=== PATIENT | male | born 1955 | race Caucasian/White ===

== ENCOUNTER 2021-11-29 15:05 | Inpatient (IN) ==
[2021-11-29] MEDS ORDERED: DILTIAZEM 50 MG/10 ML VIAL IV STA (20:06)
[2021-11-29] MEDS ORDERED: DILTIAZEM INJ 100 MG in SODIUM CHLORIDE 0.9% 100 ML IV SCH (20:30)
[2021-11-29 21:07] LABS: Basophils % 0.6 % (0.0-0.8); Eosinophils % 0.3 % (0.00-10.9); Hematocrit 45.6 VOL% (42.0-52.0); Hemoglobin 14.6 GM/DL (14.0-18.0); Immature Granulocytes % 0.6 %; Immature Granulocytes Absolute 0.04 #; Lymphocytes # 1.2 10*3/uL (1.4-4.0); Lymphocytes % 16.5 % (21.2-54.2); Mean Corpuscular Volume 92.5 FL (87-102); Mean Platelet Volume 11.8 FL (9.6-12.0); Monocytes % 10.8 % (1.7-12.7); Neutrophils % 71.2 % (38.7-73.9); Platelet Count 203 T/CUMM (130-400); Red Blood Count 4.93 MC/CUMM (3.8-5.5); Red Cell Distribution Width 14.2 % (9.3-17.3)
[2021-11-29 21:16] LABS: PT Patient Result 10.9 SECS (10.5-12.0)
[2021-11-29 21:28] LABS: Albumin 2.9 G/DL (3.4-5.0); Bilirubin,Total 0.8 MG/DL (0.20-1.00); Calcium 9.2 MG/DL (8.5-10.1); Osmolality,Calculated 304.4 MOS/KG (273-304); Potassium 3.9 MMOL/L (3.5-5.1); Total Protein 6.7 G/DL (6.4-8.2)
[2021-11-29] MEDS ORDERED: SODIUM CHLORIDE 0.9% 1,000 ML IV STA (21:32)
[2021-11-29] MEDS ORDERED: GLUCAGON 1 MG VIAL IM PRN (22:53)
[2021-11-29] MEDS ORDERED: DEXTROSE 50% 25 GM/50 ML SYRINGE IV PRN (22:57)
[2021-11-29] MEDS ORDERED: DEXTROSE 50% 25 GM/50 ML VIAL IV PRN (22:59)
[2021-11-29] MEDS ORDERED: METOPROLOL TARTRATE 25 MG TABLET PO SCH (23:00)
[2021-11-29] MEDS ORDERED: SODIUM CHLORIDE 0.9% 500 ML IV SCH (23:00)
[2021-11-29] MEDS ORDERED: INSULIN GLARGINE 100 UNIT/ML SUBCUT SCH (23:00)
[2021-11-30 06:22] LABS: Basophils % 0.4 % (0.0-0.8); Eosinophils # 0.1 10*3/uL (0.0-0.87); Hematocrit 39.3 VOL% (42.0-52.0); Hemoglobin 12.8 GM/DL (14.0-18.0); Lymphocytes # 1.4 10*3/uL (1.4-4.0); Lymphocytes % 18.9 % (21.2-54.2); Mean Corpuscular HGB Conc 32.6 GM/DL (32-36); Mean Corpuscular Volume 93.1 FL (87-102); Mean Platelet Volume 12.1 FL (9.6-12.0); Monocytes % 12.8 % (1.7-12.7); Neutrophils % 66.3 % (38.7-73.9); Platelet Count 174 T/CUMM (130-400); Red Blood Count 4.22 MC/CUMM (3.8-5.5); Red Cell Distribution Width 13.8 % (9.3-17.3); White Blood Count 7.2 T/CUMM (4-12)
[2021-11-30 06:53] LABS: Calcium 8.9 MG/DL (8.5-10.1); Osmolality,Calculated 300.1 MOS/KG (273-304); Potassium 3.3 MMOL/L (3.5-5.1)
[2021-11-30 08:19] LABS: Lymphocytes 8 % (20-55); Segmented Neutrophils 87 % (50-85)
[2021-11-30 08:20] LABS: Platelet Estimate Normal; Polychromasia Slight
[2021-11-30] MEDS ORDERED: DILTIAZEM CD 120 MG CAPSULE PO SCH (09:00)
[2021-11-30] MEDS ORDERED: FLUDROCORTISONE 0.1 MG TABLET PO SCH (09:00)
[2021-11-30] MEDS: DILTIAZEM CD 120 MG CAPSULE PO SCH (09:43)
[2021-11-30] MEDS: TAMSULOSIN 0.4 MG CAPSULE PO SCH (09:44)
[2021-11-30] MEDS: CYANOCOBALAMIN 500 MCG TABLET PO SCH (09:44)
[2021-11-30] MEDS: MAGNESIUM CHLORIDE 64 MG TABLET PO SCH (09:44)
[2021-11-30] MEDS: FERROUS SULFATE 325 MG TABLET PO SCH (09:44)
[2021-11-30] MEDS: APIXABAN 5 MG TABLET PO SCH ×2 (09:44→20:21)
[2021-11-30] MEDS: METOPROLOL TARTRATE 50 MG TABLET PO SCH ×3 (09:44→20:22)
[2021-11-30] MEDS: DULoxetine 30 MG CAPSULE PO SCH (09:44)
[2021-11-30] MEDS: ASPIRIN EC 81 MG TABLET PO SCH (09:45)
[2021-11-30] MEDS: PANTOPRAZOLE 40 MG TABLET PO SCH (09:51)
[2021-11-30] MEDS: INSULIN GLARGINE 100 UNIT/ML SUBCUT SCH ×2 (09:51→20:23)
[2021-11-30] MEDS: INSULIN LISPRO 100 UNIT/ML SUBCUT SCH ×6 (09:53→20:57)
[2021-11-30] MEDS: ALBUTEROL/IPRATROPIUM 3 ML NEB RESP TX PRN (11:30)
[2021-11-30] MEDS: oxyCODONE/ACETAMINOPHEN 5-325 MG TABLET PO PRN ×2 (11:53→17:56)
[2021-11-30] MEDS: CHOLECALCIFEROL 1,000 UNIT TABLET PO SCH (20:21)
[2021-11-30] MEDS: ATORVASTATIN 80 MG TABLET PO SCH (20:21)
[2021-11-30] MEDS: MONTELUKAST 10 MG TABLET PO SCH (20:22)
[2021-11-30] MEDS: POTASSIUM CHLORIDE 20 MEQ TABLET PO PRN (20:22)
[2021-12-01] MEDS: POTASSIUM CHLORIDE 20 MEQ TABLET PO PRN (01:54)
[2021-12-01] MEDS: oxyCODONE/ACETAMINOPHEN 5-325 MG TABLET PO PRN (01:54)
[2021-12-01 05:20] LABS: Basophils % 0.3 % (0.0-0.8); Eosinophils # 0.2 10*3/uL (0.0-0.87); Eosinophils % 2.2 % (0.00-10.9); Hematocrit 39.5 VOL% (42.0-52.0); Hemoglobin 12.6 GM/DL (14.0-18.0); Immature Granulocytes % 0.9 %; Immature Granulocytes Absolute 0.06 #; Lymphocytes # 1.5 10*3/uL (1.4-4.0); Lymphocytes % 22.9 % (21.2-54.2); Mean Corpuscular HGB Conc 31.9 GM/DL (32-36); Mean Corpuscular Volume 92.9 FL (87-102); Mean Platelet Volume 11.6 FL (9.6-12.0); Monocytes % 10.3 % (1.7-12.7); Neutrophils % 63.4 % (38.7-73.9); Platelet Count 159 T/CUMM (130-400); Red Blood Count 4.25 MC/CUMM (3.8-5.5); Red Cell Distribution Width 13.9 % (9.3-17.3); White Blood Count 6.7 T/CUMM (4-12)
[2021-12-01 05:40] LABS: Calcium 9.1 MG/DL (8.5-10.1); Osmolality,Calculated 292.7 MOS/KG (273-304); Potassium 3.1 MMOL/L (3.5-5.1)
[2021-12-01] MEDS: TAMSULOSIN 0.4 MG CAPSULE PO SCH (08:48)
[2021-12-01] MEDS: DULoxetine 30 MG CAPSULE PO SCH (08:48)
[2021-12-01] MEDS: ASPIRIN EC 81 MG TABLET PO SCH (08:49)
[2021-12-01] MEDS: FERROUS SULFATE 325 MG TABLET PO SCH (08:49)
[2021-12-01] MEDS: CYANOCOBALAMIN 500 MCG TABLET PO SCH (08:49)
[2021-12-01] MEDS: METOPROLOL TARTRATE 50 MG TABLET PO SCH ×2 (08:49→21:39)
[2021-12-01] MEDS: PANTOPRAZOLE 40 MG TABLET PO SCH (08:49)
[2021-12-01] MEDS: APIXABAN 5 MG TABLET PO SCH ×2 (08:49→21:38)
[2021-12-01] MEDS: DILTIAZEM CD 120 MG CAPSULE PO SCH (08:49)
[2021-12-01] MEDS: MAGNESIUM CHLORIDE 64 MG TABLET PO SCH (08:49)
[2021-12-01] MEDS: INSULIN GLARGINE 100 UNIT/ML SUBCUT SCH ×2 (08:50→21:54)
[2021-12-01] MEDS: INSULIN LISPRO 100 UNIT/ML SUBCUT SCH ×7 (08:50→21:54)
[2021-12-01] MEDS: POTASSIUM CHLORIDE 20 MEQ TABLET PO SCH ×2 (11:41→21:38)
[2021-12-01] MEDS: FOLIC ACID 1 MG TABLET PO SCH (21:38)
[2021-12-01] MEDS: CHOLECALCIFEROL 1,000 UNIT TABLET PO SCH (21:39)
[2021-12-01] MEDS: ATORVASTATIN 80 MG TABLET PO SCH (21:39)
[2021-12-01] MEDS: MONTELUKAST 10 MG TABLET PO SCH (21:39)
[2021-12-02 05:40] LABS: Basophils % 0.4 % (0.0-0.8); Eosinophils # 0.1 10*3/uL (0.0-0.87); Eosinophils % 1.2 % (0.00-10.9); Hematocrit 40.4 VOL% (42.0-52.0); Hemoglobin 12.7 GM/DL (14.0-18.0); Immature Granulocytes % 0.7 %; Immature Granulocytes Absolute 0.06 #; Lymphocytes # 1.5 10*3/uL (1.4-4.0); Lymphocytes % 17.6 % (21.2-54.2); Mean Corpuscular HGB Conc 31.4 GM/DL (32-36); Mean Corpuscular Volume 94.4 FL (87-102); Monocytes % 6.8 % (1.7-12.7); Neutrophils % 73.3 % (38.7-73.9); Platelet Count 150 T/CUMM (130-400); Red Blood Count 4.28 MC/CUMM (3.8-5.5); Red Cell Distribution Width 13.9 % (9.3-17.3); White Blood Count 8.3 T/CUMM (4-12)
[2021-12-02 06:01] LABS: Calcium 8.9 MG/DL (8.5-10.1); Osmolality,Calculated 296.4 MOS/KG (273-304); Potassium 3.9 MMOL/L (3.5-5.1)
[2021-12-02 06:03] LABS: Risk Ratio 3.02; VLDL Cholesterol 24.6 MG/DL
[2021-12-02] MEDS: ASPIRIN EC 81 MG TABLET PO SCH (08:39)
[2021-12-02] MEDS: POTASSIUM CHLORIDE 20 MEQ TABLET PO SCH (08:40)
[2021-12-02] MEDS: TAMSULOSIN 0.4 MG CAPSULE PO SCH (08:41)
[2021-12-02] MEDS: CHOLECALCIFEROL 1,000 UNIT TABLET PO SCH ×2 (08:41→20:53)
[2021-12-02] MEDS: FERROUS SULFATE 325 MG TABLET PO SCH (08:42)
[2021-12-02] MEDS: DILTIAZEM CD 120 MG CAPSULE PO SCH (08:43)
[2021-12-02] MEDS: MONTELUKAST 10 MG TABLET PO SCH ×2 (08:44→20:53)
[2021-12-02] MEDS: MAGNESIUM CHLORIDE 64 MG TABLET PO SCH (08:44)
[2021-12-02] MEDS: CYANOCOBALAMIN 500 MCG TABLET PO SCH (08:44)
[2021-12-02] MEDS: METOPROLOL TARTRATE 50 MG TABLET PO SCH ×2 (08:44→20:53)
[2021-12-02] MEDS: APIXABAN 5 MG TABLET PO SCH ×2 (08:45→20:53)
[2021-12-02] MEDS: PANTOPRAZOLE 40 MG TABLET PO SCH (08:46)
[2021-12-02] MEDS: DULoxetine 30 MG CAPSULE PO SCH (08:53)
[2021-12-02] MEDS: INSULIN LISPRO 100 UNIT/ML SUBCUT SCH ×7 (08:55→22:39)
[2021-12-02] MEDS: FOLIC ACID 1 MG TABLET PO SCH (20:53)
[2021-12-02] MEDS: ATORVASTATIN 80 MG TABLET PO SCH (20:53)
[2021-12-02] MEDS: INSULIN GLARGINE 100 UNIT/ML SUBCUT SCH (20:54)
[2021-12-03 07:01] LABS: Basophils # 0.1 10*3/uL (0.0-0.2); Basophils % 0.7 % (0.0-0.8); Eosinophils # 0.2 10*3/uL (0.0-0.87); Eosinophils % 3.2 % (0.00-10.9); Hematocrit 39.5 VOL% (42.0-52.0); Hemoglobin 12.9 GM/DL (14.0-18.0); Immature Granulocytes % 0.9 %; Immature Granulocytes Absolute 0.07 #; Lymphocytes # 2.3 10*3/uL (1.4-4.0); Lymphocytes % 30.7 % (21.2-54.2); Mean Corpuscular HGB Conc 32.7 GM/DL (32-36); Mean Corpuscular Volume 91.6 FL (87-102); Mean Platelet Volume 11.6 FL (9.6-12.0); Monocytes % 6.4 % (1.7-12.7); Neutrophils % 58.1 % (38.7-73.9); Platelet Count 155 T/CUMM (130-400); Red Blood Count 4.31 MC/CUMM (3.8-5.5); Red Cell Distribution Width 13.8 % (9.3-17.3); White Blood Count 7.4 T/CUMM (4-12)
[2021-12-03 07:29] LABS: Calcium 9.1 MG/DL (8.5-10.1); Osmolality,Calculated 292.6 MOS/KG (273-304); Potassium 3.6 MMOL/L (3.5-5.1)
[2021-12-03] MEDS: POTASSIUM CHLORIDE 20 MEQ TABLET PO SCH (10:04)
[2021-12-03] MEDS: DULoxetine 30 MG CAPSULE PO SCH (10:04)
[2021-12-03] MEDS: TAMSULOSIN 0.4 MG CAPSULE PO SCH (10:05)
[2021-12-03] MEDS: MAGNESIUM CHLORIDE 64 MG TABLET PO SCH (10:06)
[2021-12-03] MEDS: ASPIRIN EC 81 MG TABLET PO SCH (10:07)
[2021-12-03] MEDS: METOPROLOL TARTRATE 50 MG TABLET PO SCH ×2 (10:07→21:01)
[2021-12-03] MEDS: DILTIAZEM CD 120 MG CAPSULE PO SCH (10:07)
[2021-12-03] MEDS: CYANOCOBALAMIN 500 MCG TABLET PO SCH (10:08)
[2021-12-03] MEDS: FERROUS SULFATE 325 MG TABLET PO SCH (10:08)
[2021-12-03] MEDS: APIXABAN 5 MG TABLET PO SCH ×2 (10:08→21:01)
[2021-12-03] MEDS: PANTOPRAZOLE 40 MG TABLET PO SCH (10:09)
[2021-12-03] MEDS: FLUDROCORTISONE 0.1 MG TABLET PO SCH (10:10)
[2021-12-03] MEDS: INSULIN LISPRO 100 UNIT/ML SUBCUT SCH ×6 (10:26→21:30)
[2021-12-03] MEDS: ALBUTEROL/IPRATROPIUM 3 ML NEB RESP TX PRN (13:18)
[2021-12-03] MEDS: ALBUTEROL/IPRATROPIUM 3 ML NEB RESP TX SCH (19:43)
[2021-12-03] MEDS: CHOLECALCIFEROL 1,000 UNIT TABLET PO SCH (21:00)
[2021-12-03] MEDS: FOLIC ACID 1 MG TABLET PO SCH (21:01)
[2021-12-03] MEDS: MONTELUKAST 10 MG TABLET PO SCH (21:01)
[2021-12-03] MEDS: ATORVASTATIN 80 MG TABLET PO SCH (21:04)
[2021-12-03] MEDS: INSULIN GLARGINE 100 UNIT/ML SUBCUT SCH (21:30)
[2021-12-04] MEDS: ALBUTEROL/IPRATROPIUM 3 ML NEB RESP TX SCH ×3 (00:28→13:06)
[2021-12-04 05:03] LABS: Basophils # 0.1 10*3/uL (0.0-0.2); Basophils % 0.6 % (0.0-0.8); Eosinophils # 0.3 10*3/uL (0.0-0.87); Eosinophils % 3.2 % (0.00-10.9); Hematocrit 39.7 VOL% (42.0-52.0); Immature Granulocytes % 0.9 %; Immature Granulocytes Absolute 0.08 #; Lymphocytes # 2.1 10*3/uL (1.4-4.0); Lymphocytes % 23.7 % (21.2-54.2); Mean Corpuscular HGB Conc 32.7 GM/DL (32-36); Mean Corpuscular Volume 92.5 FL (87-102); Mean Platelet Volume 11.6 FL (9.6-12.0); Monocytes % 6.8 % (1.7-12.7); Neutrophils % 64.8 % (38.7-73.9); Platelet Count 161 T/CUMM (130-400); Red Blood Count 4.29 MC/CUMM (3.8-5.5); Red Cell Distribution Width 13.8 % (9.3-17.3)
[2021-12-04 05:24] LABS: Calcium 8.8 MG/DL (8.5-10.1); Potassium 4.1 MMOL/L (3.5-5.1)
[2021-12-04] MEDS: INSULIN LISPRO 100 UNIT/ML SUBCUT SCH ×3 (08:07→13:06)
[2021-12-04] MEDS: DILTIAZEM CD 120 MG CAPSULE PO SCH (09:44)
[2021-12-04] MEDS: MAGNESIUM CHLORIDE 64 MG TABLET PO SCH (09:44)
[2021-12-04] MEDS: DULoxetine 30 MG CAPSULE PO SCH (09:44)
[2021-12-04] MEDS: FERROUS SULFATE 325 MG TABLET PO SCH (09:45)
[2021-12-04] MEDS: ASPIRIN EC 81 MG TABLET PO SCH (09:45)
[2021-12-04] MEDS: APIXABAN 5 MG TABLET PO SCH (09:45)
[2021-12-04] MEDS: CYANOCOBALAMIN 500 MCG TABLET PO SCH (09:45)
[2021-12-04] MEDS: METOPROLOL TARTRATE 50 MG TABLET PO SCH (09:45)
[2021-12-04] MEDS: PANTOPRAZOLE 40 MG TABLET PO SCH (09:45)
[2021-12-04] MEDS: FLUDROCORTISONE 0.1 MG TABLET PO SCH (09:45)
[2021-12-04] MEDS: TAMSULOSIN 0.4 MG CAPSULE PO SCH (09:46)
[2021-12-04] MEDS: POTASSIUM CHLORIDE 20 MEQ TABLET PO SCH (09:46)
[2021-12-04 12:04] VITALS: BP 143/81
== END 2021-12-04 14:24 | disposition swing bed (61) | DRG 309 ==
LOC: EDBD → EDUNIT# → N.ED 15:05 → N.EDINP 22:43 → SUATTDRO 22:43 → N.EDINP 11-30 00:16 → N.TELES 11-30 01:56
PROVIDERS: ADMIT Hospitalist; ATTEND Hospitalist